=== PATIENT | male | born 1995 | race Caucasian/White ===

== ENCOUNTER 2018-10-31 13:26 | Emergency (ER) | payer BC ==
--- NOTE | 2018-10-31 14:51 | ED ---
Lower Extremity - HPI Summary HPI Summary: Patient is a 23-year-old male sent from [facility] with a fracture of the right lower extremity. He states he was walking down his driveway today and slipped and fell injuring the right ankle. He denies any pain to the right lower extremity otherwise. Pain is mostly located over the medial malleolus. He has never injured the ankle in the past. He denies any ecchymosis, but endorses swelling. There is obvious noted deformity. X-rays were obtained at [facility], positive for a tibia fibular fracture. Patient denies any numbness or tingling. Denies any other injuries. - History of Current Complaint Chief Complaint: EDExtremityLower Stated Complaint: RIGHT ANKLE INJURY Time Seen by Provider: 10/31/18 13:45 Hx Obtained From: Patient Mechanism Of Injury: Twisted Onset of Pain: Minutes Onset/Duration: Minutes Severity Initially: Mild Severity Currently: Mild Pain Intensity: 2 Pain Scale Used: 0-10 Numeric Timing: Constant Location: Is Discrete @ - right ankle pain Character Of Pain: Aching, Throbbing Associated Signs And Symptoms: Positive: Swelling, Weakness. Negative: Redness , Bruising Aggravating Factor(s): Standing, Ambulation Able to Bear Weight: No - Risk Factors Gout Risk Factors: Negative DVT Risk Factors: Negative Septic Arthritis Risk Factor: Negative - Allergies/Home Medications Allergies/Adverse Reactions: Allergies Allergy/AdvReac Type Severity Reaction Status Date / Time No Known Allergies Allergy Verified 10/31/18 13:42 PMH/Surg Hx/FS Hx/Imm Hx Previously Healthy: Yes - Immunization History Hx Pertussis Vaccination: No Immunizations Up to Date: Yes Infectious Disease History: No Infectious Disease History: Denies: Traveled Outside the [place] in Last 30 Days - Social History Occupation: Unemployed Lives: Dormitory/Roommates Alcohol Use: unknown Alcohol Amount: uk Substance Use Type: Reports: None Hx Tobacco Use: Yes Smoking Status (MU): Unknown if Ever Smoked Review of Systems Constitutional: Negative Negative: Fever, Chills, Fatigue, Skin Diaphoresis Negative: Palpitations, Chest Pain Negative: Shortness Of Breath Genitourinary: Negative Positive: no symptoms reported, see HPI Positive: Arthralgia, Myalgia Skin: Negative Positive: Other - swelling Neurological: Negative All Other Systems Reviewed And Are Negative: Yes Physical Exam Triage Information Reviewed: Yes Vital Signs On Initial Exam: Initial Vitals Temp Pulse Resp BP Pulse Ox 97.4 F 95 18 115/64 100 10/31/18 13:38 10/31/18 13:38 10/31/18 13:38 10/31/18 13:38 10/31/18 13:38 Vital Signs Reviewed: Yes Appearance: Positive: Well-Appearing, Well-Nourished Skin: Positive: Warm, Skin Color Reflects Adequate Perfusion Head/Face: Positive: Normal Head/Face Inspection Eyes: Positive: EOMI, PHILIPPE, Conjunctiva Clear Neck: Positive: No Lymphadenopathy Respiratory/Lung Sounds: Positive: Clear to Auscultation, Breath Sounds Present Cardiovascular: Positive: Pulses are Symmetrical in both Upper and Lower Extremities Musculoskeletal: Positive: Pain @ - unable to plantarflex or dorsiflex due to pain. Significant swelling to the medial malleolus. Obvious deformity. No open fracture. No ecchymosis. Neurological: Positive: Speech Normal Psychiatric: Positive: Affect/Mood Appropriate Diagnostics - Vital Signs Vital Signs Temp Pulse Resp BP Pulse Ox 10/31/18 13:38 97.4 F 95 18 115/64 100 - Laboratory Lab Statement: Any lab studies that have been ordered have been reviewed, and results considered in the medical decision making process. Lower Extremity Course/Dx - Course Course Of Treatment: Patient arise from [facility] with the tibia/fibular fracture. He denies any pain to the right lower extremity otherwise, however due to the severity of the fracture, x-ray of the right lower extremity was obtained. Patient declines any pain medications and states his pain is currently a 2/10. At rest he denies pain. No ecchymosis noted, however severe swelling to the medial ankle. Pulses +2 intact bilaterally. This is not an open fracture. IMPRESSION: SLIGHTLY DISPLACED FRACTURES OF THE MEDIAL MALLEOLUS AND POSTERIOR TIBIA WITH A. NONDISPLACED FRACTURE OF THE DISTAL FIBULA. Provider called ortho clinic at 3pm to make appt for patient. Patient has appt with Dr. Barajas at 2pm tomorrow. Posterior U splint placed with extra padding using plaster. Patient tolerated well. NV intact pre and post splint placement. Ibuprofen encouraged - will send rx for ibuprofen and hydrocodone. - Diagnoses Differential Diagnosis/HQI/PQRI: Positive: Fracture (Closed) Provider Diagnoses: Trimalleolar fracture of ankle, closed Discharge - Sign-Out/Discharge Documenting (check all that apply): Patient Departure - Discharge Plan Condition: Stable Disposition: HOME Patient Education Materials: Leg Fracture (ED) Forms: *School Release Referrals: David Cervantes MD [Medical Doctor] - No Primary Care Phys,NOPCP [Primary Care Provider] - Additional Instructions: Please follow up with Dr. Barajas tomorrow - Billing Disposition and Condition Condition: STABLE Disposition: Home
[2018-10-31 16:19] VITALS: BP 122/78
== END 2018-10-31 16:18 | disposition home or self-care (01) ==
LOC: ED 13:26
DX: S82.851A Displaced trimalleolar fracture of right lower leg, initial encounter for closed fracture (principal); W01.0XXA Fall on same level from slipping, tripping and stumbling without subsequent striking against object, initial encounter; Y92.9 Unspecified place or not applicable
CPT/HCPCS: 99282

== ENCOUNTER 2018-11-03 10:48 | Day surgery (SDC) | payer BC ==
[~2018-11-03 10:48] MED LIST: Buffered Lidocaine 0.9% SYRIN* 5 ML/SYR SYRINGE INTRADERM ONE; Famotidine IV* 10 MG/ML 2 ML (20 mg) IV ONE; Lactated Ringers 1000 ML Bag* 1,000 ML IV SCH
[2018-11-03] MEDS ORDERED: Famotidine IV* 10 MG/ML 2 ML (20 mg) ONE (11:02)
[2018-11-03] MEDS ORDERED: ceFAZolin 2 GM PREMIX in ORs 2 GM/50 ML BAG IVPB ONE (11:02)
[2018-11-03] MEDS ORDERED: Bupivacaine 0.5% PF 10 ML VIAL INJ ONE (11:09)
[2018-11-03] MEDS ORDERED: Midazolam* 1 MG/ML 5 ML VIAL (5 MG) ONE (11:41)
[2018-11-03] MEDS ORDERED: fentaNYL* 50 MCG/ML 2 ML VIAL (100 MCG VIAL) ONE ×2 (11:41→13:26)
[2018-11-03] MEDS ORDERED: Naloxone* 0.4 MG/ML 1 ML VIAL IV PRN (12:07)
[2018-11-03] MEDS ORDERED: DiMENhydriNATE IV* 50 MG/ML VIAL IV PUSH PRN (12:07)
[2018-11-03] MEDS ORDERED: Acetaminophen TAB* 325 MG PO PRN (12:07)
[2018-11-03] MEDS ORDERED: DiMENhydriNATE IV* 50 MG/ML VIAL ONE (13:32)
[2018-11-03] MEDS ORDERED: Propofol* 10 MG/ML 20 ML BTL ONE (13:32)
[2018-11-03] MEDS ORDERED: Ondansetron INJ* 2 MG/ML VIAL ONE (13:32)
[2018-11-03] MEDS ORDERED: Dexamethasone IV* 4 MG/ML 1 ML (4 MG) ONE (13:32)
[2018-11-03] MEDS ORDERED: Ketorolac INJ* 30 MG/ML 1 ML VIAL ONE (13:32)
[2018-11-03] MEDS ORDERED: Lidocaine 2% PF * 5 ML VIAL ONE (13:33)
[2018-11-03] MEDS ORDERED: HYDROmorphone INJ1* 1 MG/ML SYRINGE ONE ×2 (13:48→16:42)
--- NOTE | 2018-11-03 16:12 | OP ---
Operative Report - Blank - Operative Report Date of Operation: 11/03/18 Note: PATIENT: Kevin Milner DATE OF : 1995 DATE OF SURGERY: 11/03/2018 SURGEON: David Cervantes MD BOOK PUBLISHER: TY Whiteside , whos assistance was necessary for positioning, retraction, help with instrumentation, and closure. ANESTHESIOLOGIST: Dr. Petit PREOPERATIVE DIAGNOSIS: Right trimalleolar ankle fracture POSTOPERATIVE DIAGNOSIS: Right trimalleolar ankle fracture OPERATION: Right trimalleolar ankle fracture open reduction and internal fixation ANESTHESIA: GETA IMPLANTS: Arthrex ankle fracture set plate and screws TOURNIQUET TIME: Less than 2 hours with a well-padded thigh tourniquet at 250mmHg SPECIMENS: none ESTIMATED BLOOD LOSS: minimal COMPLICATIONS: none STATUS: Stable from the operating room to the recovery room and then home. INDICATIONS FOR PROCEDURE: Kevin sustained a displaced right trimalleolar ankle fracture. Both operative and non operative treatment alternatives were reviewed. Further, the nature and risks of surgery were reviewed in careful detail, in the office as well as the pre-operative holding area. Our discussions regarding the risks of surgery included, but were not limited to, infection, wound problems, nerve injury, neuroma, RSD, persistent symptoms, blood clot, nonunion, malunion, post- traumatic arthritis, hardware failure, failure of the surgery, and even the remote chance of catastrophic complication, including loss of limb. DESCRIPTION OF PROCEDURE: The patient was seen in the preoperative holding unit and informed written consent was obtained. The appropriate extremity was marked. The patient was then brought to the operating room and carefully positioned on the operating room table. Anesthesia was induced. All bony prominences were padded with great care. A well-padded thigh tourniquet was placed. A chlorhexidine based pre- scrub was performed followed by a chloraprep prep and drape in standard sterile fashion. A surgical safety pause was then conducted in which we confirmed the appropriate patient, extremity, planned procedure, availability of equipment, indication and administration of prophylactic antibiotics, and DVT prophylaxis in the form of a compression boot on the non-surgical extremity. I began with Esmarch exsanguination of the limb and inflated the tourniquet. I then utilized a laterally based incision overlying the posterior aspect of the distal fibula. Great care was taken to protect the superficial peroneal nerve, which was not visualized within the field of view. I dissected down through the soft tissue layers to expose the distal fibula and SPR. I then exposed the distal fibula fractures. Fracture hematoma was removed. There was some comminution anteriorly at the fracture but I was able to use the posterior fracture lines to campus chaplain reduction, length and rotation. I gained a reduction utilizing pointed reduction clamps and then held this provisionally with K- wires. I placed two anterior to posterior lag screws which provided good compression. I then contoured a 1/3 semitubular plate from posterior proximal to lateral distally and then confirmed the reduction and the position of the plate fluoroscopically. I placed screws to hold the plate to the bone. The provisional fixation was removed and then I again confirmed fluoroscopically the appropriate position of the plate and screw lengths. I then found the plane between the peroneals and flexor hallucis longus and dissected into this plane. I exposed the posterior malleolus. I reduced the fracture and this was held provisionally with a large reduction clamp and K wires.I then placed a 4.0 mm cannulated screw from anterior to posterior to fixate the fragment. I then exposed the anterolateral distal tibia fracture and reduced the fracture to the remaining tibia. I placed a 4.0 mm cannulated screw with a washer to fixate this fragment. I then placed a quadricortical syndesmotic screw while holding the tib-fib syndesmosis manually reduced. I then made an approximately 4cm incision over the medial malleolus. The fracture was exposed and hematoma was removed. Reduction of the medial malleolar fracture was obtained with a pointed reduction clamp. There was comminution anteriorly. I placed guidewires for 4.0 mm cannulated screws. I confirmed the position of the guidewires fluoroscopically. I then overdrilled one of the wires and placed a partially threaded 4.0 mm cannulated screw. I then removed the guidewires and obtained final fluoroscopic images. At this point, we irrigated copiously and then closed in layers meticulously utilizing 0 Vicryl for the deep layer, 3-0 Monocryl for the subdermal layer and abigail for the skin. A sterile dressing was then applied followed by a splint with the ankle in a neutral position. The patient was then awakened from anesthesia and transferred to the recovery room in stable condition. There were no complications. All needle and sponge counts were correct at the end of the case. ATTESTATION: I attest I was present and scrubbed and performed the critical portions of the procedure myself. POSTOPERATIVE PLAN: The postop plan is for [id number] for an anticipated duration of 2 months. Follow-up will be in 2 weeks. At that time we will likely transition into a [id number] cast.
[2018-11-03] MEDS: HYDROmorphone INJ1* 1 MG/ML SYRINGE IV PRN ×3 (16:43→17:12)
[2018-11-03] MEDS ORDERED: oxyCODONE TAB* 5 MG TAB ONE (16:51)
[2018-11-03] MEDS ORDERED: Acetaminophen TAB* 325 MG ONE (17:19)
[2018-11-03 18:19] VITALS: BP 126/67
== END 2018-11-03 18:18 | disposition home or self-care (01) ==
LOC: OR 10:48
PROVIDERS: ATTEND Orthopaedic Surgery
DX: S82.851A Displaced trimalleolar fracture of right lower leg, initial encounter for closed fracture (principal); W00.2XXA Other fall from one level to another due to ice and snow, initial encounter; Y92.008 Other place in unspecified non-institutional (private) residence as the place of occurrence of the external cause; F41.8 Other specified anxiety disorders
CPT/HCPCS: 76001; A9270-GY; C1713; J0690; J1100; J1170; J1240; J1885; J2250; J2405; J2704; J3010

== ENCOUNTER 2019-03-08 06:53 | Day surgery (SDC) | payer BC ==
[~2019-03-08 06:53] MED LIST changes: -Buffered Lidocaine 0.9% SYRIN* 5 ML/SYR SYRINGE INTRADERM ONE; +Buffered Lidocaine 1% SYRIN* 1 ML/SYRINGE INTRADERM ONE; +Dexamethasone TAB* 4 MG PO ONE; +DiMENhydriNATE IV* 50 MG/ML VIAL IV PUSH PRN; +Morphine 4 MG/ML VIAL (1 ml) 4 MG/ML VIAL IV PRN; +Naloxone* 0.4 MG/ML 1 ML VIAL IV PRN; +Ondansetron TAB* 4 MG PO ONE; +PROCHLORPERAZINE INJ 5 MG/ML 2 ML VIAL IV PRN; +Scopolamine 1.5 mg* PATCH TRANSDERM PRN; +fentaNYL* 50 MCG/ML 2 ML VIAL (100 MCG VIAL) IV PRN; +oxyCODONE/Acetamin 5/325 MG* TAB PO PRN
[2019-03-08] MEDS ORDERED: Famotidine IV* 10 MG/ML 2 ML (20 mg) ONE (07:39)
[2019-03-08] MEDS ORDERED: Dexamethasone TAB* 4 MG ONE (07:39)
[2019-03-08] MEDS ORDERED: ceFAZolin 2 GM in NS PREMIX(*) 2 GM/100 ML BAG IVPB ONE (07:39)
[2019-03-08] MEDS ORDERED: Ondansetron ODT TAB* 4 MG ONE (07:39)
[2019-03-08] MEDS ORDERED: fentaNYL* 50 MCG/ML 2 ML VIAL (100 MCG VIAL) ONE (07:56)
[2019-03-08] MEDS ORDERED: Midazolam* 1 MG/ML 5 ML VIAL (5 MG) ONE (07:56)
[2019-03-08] MEDS ORDERED: KETAMINE HCL* 50 MG/ML 10 ML VIAL ONE (07:56)
[2019-03-08] MEDS ORDERED: Bupivacaine 0.5%* 50 ML VIAL ONE (09:19)
[2019-03-08] MEDS ORDERED: Propofol* 10 MG/ML 20 ML BTL ONE (09:39)
[2019-03-08] MEDS ORDERED: Ketorolac INJ* 30 MG/ML 1 ML VIAL ONE (09:39)
[2019-03-08] MEDS ORDERED: Lidocaine 2% PF * 5 ML VIAL ONE (09:40)
[2019-03-08] MEDS ORDERED: Bupivacaine 0.25% SDV PF* 10 ML VIAL INJ ONE (10:02)
[2019-03-08 11:49] VITALS: BP 135/84
--- NOTE | 2019-03-08 15:04 | OP ---
Operative Report - Blank - Operative Report Date of Operation: 03/08/19 Note: PATIENT: Kevin Milner DATE OF : 1995 DATE OF SURGERY: 03/08/2019 SURGEON: David Cervantes MD WIND SITE MANAGER: TY Whiteside, whos assistance was necessary for positioning, retraction, help with instrumentation, and closure. ANESTHESIOLOGIST: Dr. Lukas Rodgers PREOPERATIVE DIAGNOSIS: Right ankle painful retained hardware POSTOPERATIVE DIAGNOSIS: Right ankle painful retained hardware OPERATION: 1. Right ankle, removal of implants, deep. 2. Stress fluoroscopy performed by surgeon under anesthesia. ANESTHESIA: General IMPLANTS: Removed one 3.5mm screw TOURNIQUET TIME: Less than 1 hour with an ankle esmarch tourniquet SPECIMENS: none ESTIMATED BLOOD LOSS: minimal COMPLICATIONS: none STATUS: Stable from the operating room to the recovery room and then home. INDICATIONS FOR PROCEDURE: Mitchell had a prior right trimal ankle ORIF with a retained syndesmotic screw. Both operative and non operative treatment alternatives were reviewed. Further, the nature and risks of surgery were reviewed in careful detail, in the office as well as the pre-operative holding area. Our discussions regarding the risks of surgery included, but were not limited to, infection, wound problems, nerve injury, neuroma, RSD, persistent symptoms, blood clot, fracture, syndesmotic instability, need for further surgery, post-traumatic arthritis, failure of the surgery, and even the remote chance of catastrophic complication, including loss of limb. DESCRIPTION OF PROCEDURE: The patient was seen in the preoperative holding unit and informed written consent was obtained. The appropriate extremity was marked. The patient was then brought to the operating room and carefully positioned on the operating room table. Anesthesia was induced. All bony prominences were padded with great care. A well-padded thigh tourniquet was placed. A chlorhexidine based pre- scrub was performed followed by a chloraprep prep and drape in standard sterile fashion. A surgical safety pause was then conducted in which we confirmed the appropriate patient, extremity, planned procedure, availability of equipment, indication and administration of prophylactic antibiotics, and DVT prophylaxis in the form of a compression boot on the non-surgical extremity. We began by performing an Esmarch exsanguination of the limb. I injected local anesthetic to the area of the prior surgical incision. I utilized part of the prior lateral ankle incision. I utilized blunt dissection down to the level of the hardware. I then utilized a scalpel to sharply expose the screw head. I then removed the screws utilizing a screwdriver without difficulty. Both of the screws came out in their entirety. I then performed stress testing of the syndesmosis under fluoroscopy. I performed a cotton test and external rotation stress test. No instability was appreciated at the syndesmosis or ankle mortise. Final fluoroscopic images were obtained demonstrating removal of the hardware. At this point, we irrigated copiously and then closed in layers meticulously utilizing 3-0 Monocryl and 3-0 nylon for the skin. A sterile dressing was then applied. The patient was then awakened from anesthesia and transferred to the recovery room in stable condition. There were no complications. All needle and sponge counts were correct at the end of the case. ATTESTATION: I attest I was present and scrubbed and performed the critical portions of the procedure myself. POSTOPERATIVE PLAN: The plan is to remove the sutures in 2 weeks.
[2019-03-11] MEDS ORDERED: Scopolamine PATCH Remove* 1 NOTE MISC PATCH OFF ONE (05:50)
== END 2019-03-08 11:45 | disposition home or self-care (01) ==
LOC: OR 06:53
PROVIDERS: ATTEND Orthopaedic Surgery
DX: S82.851D Displaced trimalleolar fracture of right lower leg, subsequent encounter for closed fracture with routine healing (principal); F32.9 Major depressive disorder, single episode, unspecified; F41.9 Anxiety disorder, unspecified; F90.9 Attention-deficit hyperactivity disorder, unspecified type; X58.XXXD Exposure to other specified factors, subsequent encounter
CPT/HCPCS: 76000; 88300; A9270-GY; J0690; J1885; J2250; J2704; J3010; J3490; J8540